=== PATIENT | male | born 1960 | race Caucasian/White ===

== ENCOUNTER → 2024-04-20 08:53 | Outpatient (REF) | payer MEDICARE, OTHER, SELFPAY | LOC: RAD 08:53 | PROVIDERS: ATTENDING PHYSICIAN Surgery Vascular Surgery | DX: I73.9 Peripheral vascular disease, unspecified (principal) | CPT/HCPCS: 93922; 93925 ==

== ENCOUNTER → 2024-09-16 11:15 | Outpatient (REF) | payer MEDICARE, OTHER, SELFPAY ==
[2024-09-16 15:20] LABS: Blood Urea Nitrogen 14 mg/dl (9-20); Calcium 9.5 mg/dl (8.4-10.2); Carbon Dioxide 23 mmol/L (22-30); Glucose 92 mg/dl (70-99); eGFR > 60.00
[2024-09-16 15:45] LABS: Chloride 104 mmol/L (98-107); Potassium 4.4 mmol/L (3.5-5.1); Sodium 139 mmol/L (135-145)
== END ==
LOC: REG 11:15
PROVIDERS: ATTENDING PHYSICIAN Surgery Vascular Surgery
DX: I77.9 Disorder of arteries and arterioles, unspecified (principal)
CPT/HCPCS: 36415; 80048

== ENCOUNTER → 2024-09-18 10:49 | Outpatient (REF) | payer MEDICARE, OTHER, SELFPAY | LOC: RAD 10:49 | PROVIDERS: ATTENDING PHYSICIAN Surgery Vascular Surgery; FAMILY PHYSICIAN Family Medicine | DX: I77.9 Disorder of arteries and arterioles, unspecified (principal) | CPT/HCPCS: 75635; Q9967 ==